=== PATIENT | male | born 1950 | race Caucasian/White ===

== ENCOUNTER 2021-04-09 15:43 | Emergency (ER) | payer MEDICARE, SELFPAY ==
--- NOTE | 2021-04-09 15:51 | ED.WOUNDLAC ---
HPI - Wound/Laceration General Chief Complaint: Skin/Abscess/Foreign Body Stated Complaint: cut right 3rd finger Time Seen by Provider: 04/09/21 16:00 Source: patient, RN notes reviewed and old records reviewed Mode of arrival: ambulatory Limitations: no limitations History of Present Illness HPI narrative: 70-year-old male presents to the [facility] with a small flap of skin/laceration to the distal aspect right third finger. Occurred approximately 1 hour prior to arrival Per outside link to [facility], last Tdap 01/23/2020 Related Data Home Medications Medication Instructions Recorded Confirmed aspirin 81 mg tablet,delayed 81 mg PO DAILY 04/13/20 04/09/21 release cholecalciferol (vitamin D3) 25 25 mcg PO DAILY 04/13/20 03/18/21 mcg (1,000 unit) capsule hydrochlorothiazide 25 mg tablet 25 mg PO DAILY 04/13/20 03/18/21 krill oil 500 mg capsule mg PO 04/13/20 03/18/21 metoprolol succinate 25 mg 25 mg PO DAILY 04/13/20 04/09/21 tablet,extended release 24 hr omega-3 fatty acids 1,000 mg 1,000 mg PO DAILY 04/13/20 03/18/21 capsule omeprazole 40 mg capsule,delayed 40 mg PO DAILY 04/13/20 03/18/21 release ascorbic acid (vitamin C) 1,000 mg 1 g PO DAILY 09/14/20 03/18/21 tablet ferrous fumarate 325 mg (106 mg 325 mg PO DAILY 09/14/20 03/18/21 iron) tablet magnesium oxide 500 mg capsule 500 mg PO .3 times a week cap 09/14/20 03/18/21 psyllium husk 0.4 gram capsule 0.4 g PO DAILY 09/14/20 03/18/21 saw palmetto 450 mg capsule 450 mg PO BID 09/14/20 03/18/21 turmeric root extract 500 mg 500 mg PO DAILY 09/14/20 03/18/21 capsule vitamin B complex 1 tablet PO DAILY 09/14/20 03/18/21 cinnamon bark 500 mg capsule 500 mg PO DAILY cap 03/18/21 03/18/21 Allergies Allergy/AdvReac Type Severity Reaction Status Date / Time morphine Allergy Mild Itching Verified 03/18/21 10:21 Review of Systems Review of Systems: All systems reviewed & are unremarkable except as noted in HPI and below Constitutional: Constitutional: Reports no additional constitutional complaints, Denies chills and Denies fever(s) Eyes: Eyes: Denies no additional eye complaints ENT: Reports system reviewed and no additional complaints, except as documented Cardiovascular: Cardiovascular: Reports no additional cardiovascular complaints Respiratory: Respiratory: Reports no additional respiratory complaints Musculoskeletal: Musculoskeletal: Reports no additional musculoskeletal complaints Integumentary/Breasts: Skin/Breast: Reports as per HPI Comments: Cut distal aspect third finger right hand Neurologic: Reports system reviewed and no additional complaints, except as documented Psychiatric: Psychiatric: Reports no additional psychiatric complaints Allergic/Immunologic: Allergic/Immunologic: Reports no additional allergic/immunologic complaints PMFSH Past Medical History Medical History (Updated 04/09/21 @ 17:36 by Audrey Rahman) Anemia Essential hypertension Mixed hyperlipidemia Surgical History Surgical History (Updated 04/09/21 @ 17:34 by Audrey Rahman) H/O partial resection of colon Family History Family History Father Congestive heart disease Social History Social History Smoking status: Never smoker Second hand tobacco smoke exposure: No Alcohol intake: current Drinks per week: 7 Alcohol use details: wine, beer, and scotch Substance use: never Substance use type: does not use Comments At the time of my signature, I reviewed and agree with the nursing past medical, surgical, social, and family history. There is no relevant family history pertinent to the patient complaint. Exam Const: General: healthy appearing, no acute distress and alert Nutritional Appearance: well nourished Orientation/consciousness: patient oriented x3 Limitations: no limitations HENMT: Head: normal to inspection
[2021-04-09 15:55] VITALS: BP 126/57; PULSE 66; RESP 16; TEMP 36.3; O2SAT 99
== END 2021-04-09 16:33 | disposition home or self-care (01) ==
PROVIDERS: Emergency Provider Nurse Practitioner; PCP Internal Medicine
DX: S61.212A Laceration without foreign body of right middle finger without damage to nail, initial encounter (principal); X58.XXXA Exposure to other specified factors, initial encounter; I10 Essential (primary) hypertension; E78.2 Mixed hyperlipidemia; Z79.82 Long term (current) use of aspirin
CPT/HCPCS: 12001; 99212; G0463

== ENCOUNTER 2022-01-11 13:19 | Outpatient (CLI) | payer MEDICARE, SELFPAY ==
--- NOTE | ~2022-01-11 | XR_ITS ---
EXAMINATION: XR chest 2V Exam Date/Time: 01/11/2022 13:30 CDT HISTORY: J06.9 - Acute upper respiratory infection, COUGH SOB 3 DAYS Comparison: None available. RESULT: Lines, tubes, and devices: None. Lungs and pleura: Bilateral streaky/linear basilar opacities, likely representing atelectasis or sca r. No focal consolidation. Senescent change. Cardiomediastinal silhouette: Stable. Other: No acute osseous or upper abdominal finding. IMPRESSION: No acute cardiopulmonary process. Reviewed, dictated and finalized at location K.
== END 2022-01-11 13:20 | disposition home or self-care (01) ==
PROVIDERS: PCP Internal Medicine; Visit Provider Internal Medicine
DX: J06.9 Acute upper respiratory infection, unspecified (principal)
CPT/HCPCS: 71046